=== PATIENT | male | born 1970 | race Caucasian/White ===

== ENCOUNTER → 2017-07-29 | Day surgery (SDC) | payer OTHER ==
[~2017-07-29] VITALS: Ht 172.7 cm; Wt 112.5 kg
[~2017-07-29] MED LIST: *RESP: ALBUTEROL 2.5 MG/3 ML NEB (PRN) PERIprocedural Use ONLY NEB ONE; ACETAMINOPHEN 1000 MG/100 ML 100 ML IV ONE; ACETAMINOPHEN/HYDROcodone 325 MG/5 MG TAB PO PRN; ARTIFICIAL TEARS OPTH OINT 3.5 APPLIC/3.5 GM TUBO ONE; BUPIVACAINE/EPINEPHRINE 0.25% PF 30 ML VIAL ONE; CHLORHEXIDINE GLUCONATE 2 % 1 PACK (2 CLOTHS) TOPICAL PRN; DEXAMETHASONE SOD PHOS 4 MG/ML VIAL IV ONE; DO NOT ADM ANY ANTICOAGULANT DRUGS PRN; ESMOLOL HCL 100 MG/10 ML VIAL IV ONE; INSULIN HUMAN REGULAR 1,000 UNITS/10 ML VIAL SQ PRN; KETOROLAC TROMETHAMINE 30 MG/ML (IVP) VIAL IV PUSH ONE; LACTATED RINGER'S 1000 ML IV PRN; LIDOCAINE HCL 1% 50 ML VIAL ONE; LIDOCAINE HCL 1% PF 5 ML SYRINGE OTHER ONE; LISI-519 PO; METO100T PO; METOPROLOL TARTRATE 25 MG TAB PO PRN; MIDAZOLAM HCL 2 MG/2 ML VIAL IV ONE; ONDANSETRON HCL 4 MG/2 ML VIAL IV ONE; ONDANSETRON HCL 4 MG/2 ML VIAL IV PRN; PHENYLEPH/NS 1000 MCG/10 ML SYR IV ONE; PHENYLEPHRINE HCL 10 MG/ML VIAL IV ONE; POVIDONE IODINE 5% (ANTISEPSIS KIT) 4 APPLICATIONS EACH NARE PRN; PROPOFOL 200 MG/20 ML AMP IV ONE; ROCURONIUM INJ 50 MG/5 ML SYRINGE IV PUSH ONE; SODIUM CHLORID 0.9% 500 ML INJ 500 ML IV ONE; SODIUM CHLORID 0.9% 500 ML IV PRN; SUGAMMADEX SODIUM 200 MG/2 ML VIAL IV PUSH ONE; ePHEDrine/NS 25 MG/5 ML SYR IV ONE
[2017-07-29 06:48] LABS: AUTOMATED NEUTROPHIL # 7.5 TH/MM3 (1.8-7.7); BASOPHIL # 0.1 TH/MM3 (0-0.2); BASOPHIL % 0.9 % (0.0-2.0); EOSINOPHIL # 0.3 TH/MM3 (0-0.4); EOSINOPHIL % 2.6 % (0.0-4.0); HEMATOCRIT 48.5 % (39.0-51.0); HEMO FLAGS DIFF FINAL; LYMPH % 12.8 % (9.0-44.0); LYMPHOCYTE # 1.3 TH/MM3 (1.0-4.8); MEAN CELL VOLUME 87.3 FL (80.0-100.0); MEAN CORPUSCULAR HEMOGLOBIN 28.7 PG (27.0-34.0); MEAN CORPUSCULAR HGB CONC 32.9 % (32.0-36.0); MONO % 7.7 % (0.0-8.0); PLATELET COUNT 204 TH/MM3 (150-450); RED BLOOD COUNT 5.56 MIL/MM3 (4.50-5.90); RED CELL DISTRIBUTION WIDTH 13.8 % (11.6-17.2); WHITE BLOOD COUNT 9.8 TH/MM3 (4.0-11.0)
[2017-07-29 07:12] LABS: ALT (GPT) 40 U/L (12-78); ANION GAP 9 MEQ/L (5-15); AST (GOT) 35 U/L (15-37); BICARBONATE 24.8 MEQ/L (21.0-32.0); BLOOD UREA NITROGEN 38 MG/DL (7-18); CHLORIDE 104 MEQ/L (98-107); GLOMERULAR FILTRATION RATE 8 ML/MIN (>89); POTASSIUM 3.6 MEQ/L (3.5-5.1); SODIUM (NA) 138 MEQ/L (136-145)
[2017-07-29 07:14] LABS: ALKALINE PHOSPHATASE 56 U/L (45-117); TOTAL BILIRUBIN ADULT 0.5 MG/DL (0.2-1.0)
[2017-07-29] MEDS: ceFAZolin 2 GM PREMIX 50 ML IV SCH ×3 (07:33→08:41)
--- NOTE | 2017-07-29 09:17 | PD.OP ---
Operative Report Date of Surgery: Jul 29, 2017 Preoperative Diagnosis: CKD, desire for PD possible recurrent [facility] Postoperative Diagnosis: same Procedure: lap assisted PD catheter placement Anesthesia: general Surgeon: Edis Hernandez Apprentice Lineman Third Step(s): Solomon Operation and Findings: successful placement with good flow, fluid return. EBL less than 3 ml. Intra operative EKG changes, postop EKG planned, patient's adjunct instructor in economics is Dr Eagle. Edis Hernandez MD Jul 29, 2017 09:17
--- NOTE | 2017-07-29 09:48 | MP ---
cc: RODNEY PALACIOS M.D., ABDUL Q. MD BUCHANAN,PEPITO BERNAL,DIOR Pop MD DATE OF SURGERY 07/29/2017 PREOPERATIVE DIAGNOSES Chronic kidney disease, desire for peritoneal dialysis. Possible recurrent umbilical hernia. POSTOPERATIVE DIAGNOSES Chronic kidney disease. Desire for peritoneal dialysis. No evidence of recurrent umbilical hernia. PROCEDURE Laparoscopic-assisted peritoneal dialysis catheter placement. SURGEON Dr. Rodney Palacios ANESTHESIA General. INDICATIONS A pleasant 47-year-old otherwise healthy-appearing gentleman who has developed chronic kidney disease. He desires peritoneal dialysis with potential bridge to kidney transplantation. The patient had a previous umbilical hernia repair and there was some weakness at the umbilicus with a reducible tiny bulge. Recommendations are made for surgery as discussed above. INTRAOPERATIVE FINDINGS 1. Successful placement of tri-cuffed peritoneal dialysis catheter with a swan-neck exiting the left lateral abdomen as the patient desired. 2. Estimated blood loss was less than 3 mL. 3. Umbilical hernia mesh intact. The small bulge was consistent with eventration of the mesh. No additional therapy is indicated. 4. Intraoperative EKG changes noted by anesthesia. Postoperative EKG is planned. The the patient's care team understands the patient's airline manager is Dr. Dior Bernal should there be any questions. DESCRIPTION OF PROCEDURE IN DETAIL The patient was identified as Rizwan Hays, taken to the operating room and placed in supine position. Sequential compression devices were placed on the bilateral lower extremities. Following induction of adequate general endotracheal anesthesia, the patient's abdomen was prepped and draped in the usual sterile fashion with Betadine. A time-out procedure was performed. Following completion of time-out procedure to everyone's satisfaction within the room, local anesthetic was injected at the proposed incision site. Left lateral subcostal 1.5 cm transverse incision was made with a scalpel. Dissection continued posteriorly through the subcutaneous fatty tissue, the anterior fascia and muscle until the posterior fascia and peritoneum were gently entered. The [employer] of 5-mm balloon Josh trocar was placed in the peritoneal cavity, its balloon inflated with CO2 insufflation until a level of 15 mmHg ensued. Laparoscopic camera was placed in the peritoneal cavity and there was no evidence of trocar entry injury. The abdomen was insufflated. There was omental adhesion to previously placed umbilical hernia mesh. A left lateral 5-mm trocar was placed in the peritoneal cavity under direct laparoscopic view after incision of the skin with a scalpel. A blunt grasper was used to perform adhesiolysis and demonstrate that there was no evidence of defect in the mesh and that the tiny bulge felt was just eventration of the mesh. There was broad coverage and no indication for further intervention at the umbilicus. A site was selected for entry of the trocar for peritoneal dialysis catheter placement. This was inferior and slightly left lateral to the umbilicus. Local anesthetic was placed and incision was carried out with scalpel. The 5-mm trocar was then used to traverse the underlying muscle until the peritoneum was encountered. A preperitoneal plane was then developed using the trocar and the trocar exited inferiorly avoiding the dome of the bladder. The peritoneal dialysis catheter curled portion was then placed through the trocar into the peritoneal cavity. The trocar was removed and the distal cuff was placed into the preperitoneal space. The catheter was then tunneled to an exit site where local anesthetic was placed along the catheter tunneling tract to the exit site and about a 1.5-cm incision transverse in nature was carried out. The catheter was tunneled with the tunneling device. The distal portion with the swan-neck and two cuffs was then placed through this opening. Local anesthetic was placed to the proposed exit site that was marked preoperatively using the Vikcie tunneler. This portion of the catheter with two cuffs was then placed. Appropriate amounts of catheter on either side was cut and the intervening titanium connector was placed between the two places, held in position with 2-0 silk ties and the catheter smoothed out in the subcutaneous tract by advancing the curled portion into the peritoneal cavity. Titanium caps were then placed on the end of the catheter where it exited the patient's abdominal wall. Saline was then run in. A full liter, about 800 cc came out. There was good catheter function. The plastic tip was placed over the titanium cap. Photographs were taken of the completed placement. The 5-mm trocar was removed. The abdomen was desufflated through the subcostal port. The subcostal fascial incision was closed with interrupted 2-0 Vicryl suture. Skin incisions were approximated with 4-0 Monocryl subcuticular sutures. The abdomen was cleansed with saline and dried. A Biopatch was placed around the catheter exit site. Mastisol and 1/2-half inch brown Steri-Strips were placed over the incision sites. 4x4s and a large rectangular Tegaderm were placed over the 4x4s, completely covering the peritoneal dialysis catheter. The patient tolerated the procedure without apparent complication. Sponge, needle and instrument counts were correct at the end of the case. MD JUANIS Schulte/MAYCOL /9:09 AM /9:23 AM
[2017-07-29 12:20] VITALS: BP 154/93; PULSE 96; RESP 18; TEMP 98.8; O2SAT 94
--- NOTE | 2017-07-29 16:28 | EKG ---
Date Performed: 07/29/2017 Time Performed: 07:13:27 PTAGE: 47 years EKG: Sinus rhythm MARKED LEFT AXIS DEVIATION MODERATE VOLTAGE CRITERIA FOR LVH, CONSIDER NORMAL VARIANT NONSPECIFIC T- WAVE ABNORMALITY ABNORMAL ECG NO PREVIOUS TRACING DOCTOR: Brandon Kendall Interpretating Date/Time 07/29/2017 16:26:37
--- NOTE | 2017-07-29 16:28 | EKG ---
Date Performed: 07/29/2017 Time Performed: 09:41:03 PTAGE: 47 years EKG: Sinus rhythm MARKED LEFT AXIS DEVIATION LEFT VENTRICULAR HYPERTROPHY AND ST-T CHANGE ABNORMAL ECG Since PREVIOUS TRACING , no significant change noted PREVIOUS TRACIN07/29/2017 07.13 DOCTOR: Brandon Kendall Interpretating Date/Time 07/29/2017 16:27:04
== END | disposition home or self-care (01) ==
LOC: HSDC 05:59
PROVIDERS: ATTEND Surgery Trauma Surgery
DX: N18.9 Chronic kidney disease, unspecified (principal); I12.9 Hypertensive chronic kidney disease with stage 1 through stage 4 chronic kidney disease, or unspecified chronic kidney disease; K42.9 Umbilical hernia without obstruction or gangrene
CPT/HCPCS: 00840; 49324; 80053; 85025; 93005; 94664; J0131; J0690; J1100; J1885; J2250; J2370; J2405; J3010; J7040; J7613